=== PATIENT | male | born 2005 | race Caucasian/White ===

== ENCOUNTER 2025-08-10 17:53 | Emergency (ER) | payer OTHER, BC, SELFPAY ==
[2025-08-10 18:13] VITALS: BP 123/72
--- NOTE | 2025-08-10 19:15 | ED.GENMED ---
History of Present Illness
General
Chief Complaint: Headache
Source: patient and family
Exam Limitations: none
Time Seen by Provider: 08/10/25 18:59
History of Present Illness
History of Present Illness:
20yoM with no significant past medical history presenting with his mother for evaluation of recurrent headaches for over a week. Patient reports pain in the left frontal area above his left eyebrow that comes and goes. He has been taking ibuprofen
with some relief. Pain is currently rated as a 3 out of 10 in severity. This is not worst headache of life. He denies any head trauma. No ear pain, fever, eye pain, visual changes, dizziness, weakness, paresthesias, neck pain/stiffness. Patient
had identical symptoms several years ago and was diagnosed with sinusitis on CT scan. He called his PCP today regarding his symptoms and was told to go to the ED for a CT scan.
Phy Exam
General Physical Exam
General Presentation: well appearing and no apparent distress
General age: appears stated age
General Skin: warm and dry
General Habitus: normal
General Mental: alert
ENT Exam
ENT Exam: TM's normal, pharynx normal, neck supple and normocephalic
Additional ENT: +L frontal sinus tenderness. No nuchal rigidity.
Eye Exam
Eye Exam: PERRL and conjunctiva normal
Pulmonary Exam
Pulmonary Exam: no respiratory distress
Neurological Exam
Neurological Exam: alert, no motor deficits and speech normal
Garrett Coma Scale
Eye Opening: Spontaneous
Verbal Response: Oriented
Motor Response: Obeys Commands
GCS Total Score: 15
Skin Exam
Skin Exam: normal color and warm/dry
Psychiatric Exam
Psychiatric Exam: normal mood/affect
Course
Orders/Labs/Results
Orders:
Orders
08/10/25 19:14
Amoxicillin 875 mg/Clav 125 mg [Augmentin 875 mg/125 mg] 1 tablet PO NOW STA
Vital Signs
Initial and Last Documented VS:
Initial Vital Signs
Temp Pulse Resp BP
97.8 F 55 20 123/72
08/10/25 18:13 08/10/25 18:13 08/10/25 18:13 08/10/25 18:13
Last Documented Vital Signs
Temp Pulse Resp BP
97.8 F 55 20 123/72
08/10/25 18:13 08/10/25 18:13 08/10/25 18:13 08/10/25 18:13
MDM/Problems Addressed
Differential Diagnosis Includes:
20yoM here with intermittent L frontal headaches >1 week. Similar symptoms a few years ago that was sinusitis. No fevers. Patient well appearing with stable vitals. He appears very comfortable and headache is currently a 3 out of 10 in severity.
There is left frontal sinus tenderness on exam with otherwise unremarkable exam. No meningismus or focal neuro deficits noted. Differential diagnosis includes: Sinusitis, cluster headache, migraine, tension headache, doubt brain mass
Patient sent to the ED by PCP for a CT scan although patient is extremely well-appearing and there are no red flags in history. He denies this being the worst of life. Discussed options of empiric treatment for sinusitis vs. CT scan. Both patient
and mother are comfortable not getting CT scan. He was started on a course of Augmentin and prednisone. Advised close f/u with PCP and ED return precautions reviewed. Patient discharged in stable condition.
*Pulse Oximetry
Oxygen Mode of Delivery: Room air
Patient hypoxic: no
*Critical Care Note
Total Time (30-74mins, 75-104mins- exclusive of procedures): Not Applicable
ED Attending Note
-
Portions of this chart may have been created with voice recognition software.� Occasional wrong word or��sound alike� substitutions may have occurred due to the inherent limitations of voice recognition software.
Discharge Plan
Departure
Patient Disposition: Home (Routine Discharge)
Date of Disposition: 08/10/25
Time of Disposition: 19:18
Patient with high blood pressure during this ER visit?: No
Discharge Problem:
Acute sinusitis
Instructions: Sinusitis in adults - ED (DC)
Prescriptions:
New
amoxicillin-pot clavulanate 875-125 mg tablet
1 tab PO BID 10 Days Qty: 19 0RF
prednisone 20 mg tablet
40 mg PO DAILY 5 Days Qty: 10 0RF
Referrals:
Good Hinkle MD [Family Provider, [facility]]
Activity Restrictions/Additional Instructions:
Take Augmentin and prednisone as prescribed. Use Flonase nasal spray daily. You may take Tylenol as needed for pain. Drink plenty of fluids and stay hydrated.
Please follow-up with your family doctor. Return to the ER with any new or worsening symptoms.
Interventions
Interventions:
*General Assessment Last Done: 08/10/25 18:13
*Neglect/Abuse Screening Last Done: 08/10/25 18:13
*Risk Screen - Suicide (C-SSRS) Last Done: 08/10/25 18:13
*Nursing Disposition Last Done: 08/10/25 19:25
ED- Neurological Assessment Last Done: 08/10/25 19:19
Discharge Date and Time
Discharge Date/Time: 08/10/25 19:25
Print Language: LITHUANIAN
[2025-08-10] MEDS: AUGMENTIN 875 MG/125 MG 1 TABLET PO (19:17)
== END 2025-08-10 19:25 | disposition home or self-care (01) ==
LOC: EMR 17:53
PROVIDERS: EMERGENCY PHYSICIAN Emergency Medicine; FAMILY PHYSICIAN Family Medicine
DX: J01.90 Acute sinusitis, unspecified (principal)
CPT/HCPCS: 99283